=== PATIENT | male | born 1970 | race Asian ===

== ENCOUNTER 2019-09-21 12:41 | Emergency (ER) | payer MEDICAID ==
[~2019-09-21] VITALS: Ht 172.7 cm; Wt 89.0 kg
[2019-09-21 12:49] VITALS: BP 130/84
[2019-09-21] MEDS ORDERED: NAPR-56 PO (13:32)
[2019-09-21] MEDS ORDERED: ketorolac trometh inj. 60 MG/2 ML VIAL IM ONE (13:35)
== END 2019-09-21 13:55 | disposition home or self-care (01) ==
LOC: ER 12:41
DX: M25.551 Pain in right hip (principal); M54.31 Sciatica, right side; R53.1 Weakness; R20.0 Anesthesia of skin; M79.604 Pain in right leg; M19.90 Unspecified osteoarthritis, unspecified site; G89.29 Other chronic pain; Z98.890 Other specified postprocedural states; Z79.1 Long term (current) use of non-steroidal anti-inflammatories (NSAID)
CPT/HCPCS: 73502; 96372; 99283; J1885